=== PATIENT | male | born 1975 | race Native Hawaiian/Other Pacific Islander ===

== ENCOUNTER 2017-03-30 14:03 | Emergency (ER) | payer OTHER ==
[~2017-03-30] VITALS: Ht 170.2 cm; Wt 68.0 kg
[2017-03-30 14:13] VITALS: BP 127/78; PULSE 78; RESP 16; TEMP 98.3; O2SAT 99
--- NOTE | 2017-03-30 14:50 | PD ---
HPI Chief Complaint: Lump, Cyst, Hernia Time Seen by Provider: 14:46 Travel History International Travel<30 days: No Contact w/Intl Traveler<30days: No Traveled to known affect area: No History of Present Illness HPI Patient present with concerns of a right inguinal hernia. States he first noticed it 5 days ago. Denies any change in bowels. Denies any acute pain. Denies any change in urination. Denies any nausea vomiting or fever. PFSH Past Medical History Medical History: Denies Significant Hx Hx Anticoagulant Therapy: No Heart Rhythm Problems: No Cardiac Catheterization: No Cardiovascular Problems: No Congestive Heart Failure: No Diabetes: No Hypertension: No Myocardial Infarction: No Past Surgical History Surgical History: No Previous Surgery Coronary Artery Bypass Graft: No Family History Family Myocardial Infarction: No Social History Alcohol Use: Yes (states social) Tobacco Use: No Substance Use: No Allergies-Medications (Allergen,Severity, Reaction): Coded Allergies: No Known Allergies (Verified Adverse Reaction, Unknown, 03/30/17) Reported Meds & Prescriptions Reported Meds & Active Scripts Active No Active Prescriptions or Reported Medications Review of Systems General / Constitutional: No: Fever Eyes: No: Visual changes HENT: No: Headaches Cardiovascular: No: Chest Pain or Discomfort Respiratory: No: Shortness of Breath Gastrointestinal: No: Abdominal Pain Genitourinary: No: Dysuria Musculoskeletal: No: Pain Skin: No Rash Neurologic: No: Weakness Psychiatric: No: Depression Endocrine: No: Polydipsia Hematologic/Lymphatic: No: Easy Bruising Physical Exam Narrative GENERAL: Well-nourished, well-developed patient. SKIN: Focused skin assessment warm/dry. HEAD: Normocephalic. EYES: No scleral icterus. No injection or drainage. NECK: Supple, trachea midline. No JVD or lymphadenopathy. CARDIOVASCULAR: Regular rate and rhythm without murmurs, gallops, or rubs. RESPIRATORY: Breath sounds equal bilaterally. No accessory muscle use. GASTROINTESTINAL: Abdomen soft, non-tender, nondistended. MUSCULOSKELETAL: No cyanosis, or edema. BACK: Nontender without obvious deformity. No CVA tenderness. Testicular exam reveals a right indirect inguinal hernia Data Data Last Documented VS Vital Signs Date Time Temp Pulse Resp B/P (MAP) Pulse Ox O2 Delivery O2 Flow Rate FiO2 03/30/17 14:13 98.3 78 16 127/78 (94) 99 MDM Medical Decision Making Medical Screen Exam Complete: Yes Emergency Medical Condition: Yes Differential Diagnosis Right inguinal hernia, testicular mass, pelvic trauma Narrative Course Assessment and plan discussed with and at bedside Diagnosis Primary Impression: Right inguinal hernia Patient Instructions: General Instructions Additional Instructions: Encouraged no heavy lifting, encouraged stool softener, encouraged to avoid Valsalva maneuver, encouraged follow-up with PCP for referral to surgery. Encouraged to return to emergency room for any change in bowel habits or onset of acute pain. Med/Other Pt SpecificInfo: No Meds Exist/No RX given Scripts No Active Prescriptions or Reported Meds Disposition: 01 DISCHARGE HOME Condition: Good Don Rosales MD Mar 30, 2017 14:50
== END 2017-03-30 15:04 | disposition home or self-care (01) ==
LOC: PHED 14:03
DX: K40.90 Unilateral inguinal hernia, without obstruction or gangrene, not specified as recurrent (principal)
CPT/HCPCS: 99282